=== PATIENT | female | born 1975 | race Caucasian/White ===

== ENCOUNTER 2017-08-15 14:25 | Outpatient (CLI) | payer OTHER ==
--- NOTE | 2017-08-16 11:53 | Ultrasound Report ---
PELVIS ULTRASOUND: 08/15/2017 COMPARISON: Pelvis ultrasound 01/30/2016. INDICATION: Abdominal pain lower abdomen. TECHNIQUE: Transabdominal and endovaginal pelvic ultrasound was performed. FINDINGS: The uterus is surgically absent. No pelvic mass is identified. There is a trace amount of free fluid which may be physiologic. The ovaries have a normal appearance with normal appearing blood flow. Right ovary 3.4 x 2.1 x 1.8 cm. Volume 7 mL Left ovary 2.7 x 1.6 x 0.9 cm. Volume 2 mL IMPRESSION: ESSENTIALLY NEGATIVE PELVIC ULTRASOUND WITH PRIOR HYSTERECTOMY. TD: 08/16/2017 11:52 MAE
== END 2017-08-15 14:26 | disposition home or self-care (01) ==
LOC: DI 14:25
PROVIDERS: ATTEND Nurse Practitioner Gerontology
DX: R10.30 Lower abdominal pain, unspecified (principal)
CPT/HCPCS: 76830; 76856

== ENCOUNTER 2017-09-23 09:47 | Outpatient (CLI) | payer OTHER ==
--- NOTE | 2017-09-23 11:37 | XRAY Report ---
Procedure Date: 09/23/2017 Accession Number: [id number] / [id number] Procedure: XRN - Cervical Spine Complete CPT Code: FULL RESULT: EXAM: Cervical Spine Complete DATE: 09/23/2017 10:05 AM CLINICAL HISTORY: Neck pain COMPARISON: None. TECHNIQUE: 3 views. FINDINGS: Alignment: Slight retrolisthesis C5 with respect to C6. Upper cervical levoscoliosis. Bones: The cervical vertebral bodies and posterior elements are well seen from the skull base through C7-T1. No fractures or bone lesions. Disks: Degenerative disc space narrowing most marked C5-6. Facets: Scattered degenerative change. Soft Tissues: Normal. No prevertebral soft tissue swelling. IMPRESSION: Degenerative change cervical spine most marked C5-6 without superimposed acute findings. RADIA
== END 2017-09-23 09:48 | disposition home or self-care (01) ==
LOC: DI.N 09:47
PROVIDERS: ATTEND Nurse Practitioner
DX: M50.31 Other cervical disc degeneration, high cervical region (principal); M47.892 Other spondylosis, cervical region; M43.12 Spondylolisthesis, cervical region; M41.82 Other forms of scoliosis, cervical region
CPT/HCPCS: 72040

== ENCOUNTER 2017-11-25 16:19 | Outpatient (CLI) | payer OTHER | END 2017-11-25 16:20 | disposition home or self-care (01) | LOC: DI.N 16:19 | PROVIDERS: ATTEND Radiology Diagnostic Radiology | DX: Z12.31 Encounter for screening mammogram for malignant neoplasm of breast (principal) | CPT/HCPCS: 77067 ==

== ENCOUNTER 2018-03-31 11:33 | Emergency (ER) | payer OTHER ==
[2018-03-31 13:14] LABS: BILIRUBIN,URINE NEGATIVE (NEGATIVE); GLUCOSE, URINE (UA) NEGATIVE (NEGATIVE); KETONES,URINE (UA) NEGATIVE (NEGATIVE); LEUKOCYTE ESTERASE, URINE NEGATIVE (NEGATIVE); NITRITE,URINE NEGATIVE (NEGATIVE); OCCULT BLOOD,URINE NEGATIVE (NEGATIVE); PROTEIN,URINE NEGATIVE (NEGATIVE); UROBILINOGEN,URINE 0.2 (NORMAL) E.U./dL (NORMAL)
[2018-03-31 13:32] LABS: CLARITY,URINE CLEAR (CLEAR); HCG UR QUAL NEGATIVE
[2018-03-31 14:24] LABS: BASOPHILS # (AUTO) 0.1 10^3/uL (0.0-0.1); BASOPHILS % (AUTO) 1.3 %; EOSINOPHILS # (AUTO) 0.1 10^3/uL (0.0-0.7); EOSINOPHILS % (AUTO) 1.2 %; HGB - HEMOGLOBIN 15.1 g/dL (12.0-16.0); LYMPHOCYTES # (AUTO) 1.9 10^3/uL (1.5-3.5); LYMPHOCYTES % (AUTO) 24.3 %; MEAN CORPUSCULAR VOLUME 85.3 fL (81.0-99.0); MONOCYTES # (AUTO) 0.6 10^3/uL (0.0-1.0); MONOCYTES % (AUTO) 7.4 %; NEUTROPHILS # (AUTO) 5.3 10^3/uL (1.5-6.6); NEUTROPHILS % (AUTO) 65.8 %; PLT - PLATELET COUNT 216 10^3/uL (130-450); RED CELL DISTRIBUTION WIDTH 12.7 % (12.0-15.0)
[2018-03-31 14:34] LABS: ALBUMIN 4.2 g/dL (3.2-5.5); ALBUMIN/GLOBULIN RATIO 1.6 (1.0-2.2); BILIRUBIN,TOTAL 0.9 mg/dL (0.2-1.0); CALCIUM 8.4 mg/dL (8.5-10.3); CREATININE 0.7 mg/dL (0.4-1.0); TOTAL PROTEIN 6.8 g/dL (6.7-8.2)
[2018-03-31] MEDS ORDERED: LIDOCAINE 1% 2 ML VIAL SUBQ ONE (15:11)
[2018-03-31] MEDS ORDERED: cefTRIAXone 1 GM VIAL IM STA (15:11)
--- NOTE | 2018-03-31 15:14 | ED Physician Documentation ---
History of Present Illness - Stated complaint Stated Complaint: AB/BACK PX - Chief complaint Chief Complaint: Abd Pain - History obtained from History obtained from: Patient - History of Present Illness Timing: How many days ago (3) Pain level max: 7 Pain level now: 5 Improved by: Nothing Worsened by: urination - Additonal information Additional information: Patient is a 42-year-old female who presents to the emergency department complaining of right flank pain. This been ongoing for the past 3 days. Also has urinary burning, frequency and urgency. States similar to past episodes of pyelonephritis. No fever. No vomiting. No vaginal bleeding or discharge. No possibility of Review of Systems Ten Systems: 10 systems reviewed and negative Constitutional: denies: Fever, Chills Ears: denies: Ear pain Nose: denies: Rhinorrhea / runny nose, Congestion Throat: denies: Sore throat Cardiac: denies: Chest pain / pressure Respiratory: denies: Cough GI: denies: Vomiting, Diarrhea, Hematemesis, Bloody / black stool Skin: denies: Rash Musculoskeletal: denies: Neck pain, Back pain Neurologic: denies: Headache PD PAST MEDICAL HISTORY - Past Medical History Past Medical History: Yes Cardiovascular: Hypertension Respiratory: None Neuro: Migraines Endocrine/Autoimmune: None GI: GERD, Other CUSTOMER CARE ASSISTANT: Endometriosis : None HEENT: None Psych: None Musculoskeletal: None Derm: None - Past Surgical History Past Surgical History: Yes /CUSTOMER CARE ASSISTANT: section, Dilation and currettage, Hysterectomy HEENT: Tonsil/Adenoidectomy - Present Medications Home Medications: Ambulatory Orders Medication Instructions Recorded Confirmed Esomeprazole Magnesium [Nexium] 40 mg PO DAILY 02/25/15 02/25/15 Cefdinir 300 mg PO BID #20 capsule 03/31/18 - Allergies Allergies/Adverse Reactions: Allergies Allergy/AdvReac Type Severity Reaction Status Date / Time fluticasone propionate * Allergy Mild Rash Verified 03/31/18 12:08 [From Flonase] Sulfa (Sulfonamide Allergy Rash Verified 03/31/18 12:08 Antibiotics) morphine AdvReac Itching Verified 03/31/18 12:08 terbutaline AdvReac Unknown Verified 03/31/18 12:08 - Social History Does the pt smoke?: No Smoking Status: Never smoker Does the pt drink ETOH?: Yes Does the pt have substance abuse?: No - Immunizations Immunizations are current?: Yes - POLST Patient has POLST: No PD ED PE NORMAL - Vitals Vital signs reviewed: Yes - General General: Alert and oriented X 3, No acute distress - HEENT HEENT: Moist mucous membranes - Neck Neck: Supple, no meningeal sign - Cardiac Cardiac: RRR - Respiratory Respiratory: No respiratory distress, Clear bilaterally - Abdomen Abdomen: Soft, Non tender, Non distended - Back Back: No spinal TTP, Other (mild R CVAT) - Derm Derm: Warm and dry - Neuro Neuro: Alert and oriented X 3 - Psych Psych: Normal mood, Normal affect Results - Vitals Vitals: Vital Signs - 24 hr 03/31/18 03/31/18 03/31/18 12:06 13:51 16:03 Temperature 37.2 C 36.1 C L 36.5 C Heart Rate 77 80 82 Respiratory 16 18 16 Rate Blood Pressure 123/83 H 128/76 115/67 O2 Saturation 100 97 100 Oxygen O2 Source Room air - Labs Labs: Laboratory Tests 03/31/18 03/31/18 03/31/18 12:20 14:13 14:13 WBC 8.0 RBC 5.20 Hgb 15.1 Hct 44.4 MCV 85.3 MCH 29.0 MCHC 34.0 RDW 12.7 Plt Count 216 MPV 8.0 Neut # (Auto) 5.3 Lymph # (Auto) 1.9 [place] # (Auto) 0.6 Eos # (Auto) 0.1 Baso # (Auto) 0.1 Absolute Nucleated RBC 0.00 Nucleated RBC % 0.0 Sodium 134 L Potassium 3.7 Chloride 104 Carbon Dioxide 26 Anion Gap 4.0 L BUN 9 Creatinine 0.7 Estimated GFR (MDRD) 91 Glucose 102 H Calcium 8.4 L Total Bilirubin 0.9 AST 23 ALT 44 Alkaline Phosphatase 79 Total Protein 6.8 Albumin 4.2 Globulin 2.6 Albumin/Globulin Ratio 1.6 Lipase 31 Urine Color YELLOW Urine Clarity CLEAR Urine pH 7.0 Ur Specific Lilly 1.015 Urine Protein NEGATIVE Urine Glucose (UA) NEGATIVE Urine Ketones NEGATIVE Urine Occult Blood NEGATIVE Urine Nitrite NEGATIVE Urine Bilirubin NEGATIVE Urine Urobilinogen 0.2 (NORMAL) Ur Leukocyte Esterase NEGATIVE Ur Microscopic Review NOT INDICATED Urine Culture Comments NOT INDICATED Urine HCG, Qual NEGATIVE PD MEDICAL DECISION MAKING - ED course Complexity details: reviewed results, re-evaluated patient, considered differential, d/w patient ED course: 42-year-old female with what appears to be pyelonephritis clinically. She is well-appearing, nontoxic. Afebrile. UA is negative, however she urinated just prior to giving the sample. Will treat based on symptoms at this point. No evidence of appendicitis. No evidence of bowel obstruction. Patient counseled regarding signs and symptoms for which I believe and urgent re-evaluation would be necessary. Patient with good understanding of and agreement to plan and is comfortable going home at this time This document was made in part using voice recognition software. While efforts are made to proofread this document, sound alike and grammatical errors may occur. Departure - Departure Disposition: 01 Home, Self Care Clinical Impression: Pyelonephritis Condition: Good Instructions: ED Kidney Infec Female Follow-Up: Eliza Godinez DNP [Primary Care Provider] - Within 1 week (if not better) Prescriptions: Cefdinir 300 mg PO BID #20 capsule Comments: Take all antibiotics until gone. Return if you worsen. This should improve with antibiotics. If you are not improving, you need further evaluation. Your prescription was sent to [facility] in [place] Discharge Date/Time: 03/31/18 16:05
[2018-03-31 16:05] VITALS: BP 115/67
== END 2018-03-31 16:05 | disposition home or self-care (01) ==
LOC: ED 11:33
DX: N12 Tubulo-interstitial nephritis, not specified as acute or chronic (principal); I10 Essential (primary) hypertension
CPT/HCPCS: 36415; 80053; 81001; 81003; 81025; 83690; 85025; 87086; 96372; 99283

== ENCOUNTER 2018-04-08 15:58 | Emergency (ER) | payer OTHER ==
[2018-04-08 16:25] LABS: BILIRUBIN,URINE NEGATIVE (NEGATIVE); GLUCOSE, URINE (UA) NEGATIVE (NEGATIVE); KETONES,URINE (UA) NEGATIVE (NEGATIVE); LEUKOCYTE ESTERASE, URINE NEGATIVE (NEGATIVE); NITRITE,URINE NEGATIVE (NEGATIVE); OCCULT BLOOD,URINE NEGATIVE (NEGATIVE); PROTEIN,URINE NEGATIVE (NEGATIVE); UROBILINOGEN,URINE 0.2 (NORMAL) E.U./dL (NORMAL)
[2018-04-08 16:27] LABS: CLARITY,URINE CLEAR (CLEAR)
--- NOTE | 2018-04-08 16:29 | ED Physician Documentation ---
PD HPI ABD PAIN - Stated complaint Stated Complaint: LOWER ABD PX - Chief complaint Chief Complaint: Abd Pain - History obtained from History obtained from: Patient - History of Present Illness Timing - onset: How many weeks ago (04/09) Timing - duration: Weeks (04/09) Timing - details: Gradual onset, Waxing and waning Quality: Cramping, Aching, Pain Location: RLQ, Suprapubic Radiation: Right flank Improved by: No: Eating, Laying still Worsened by: Moving, Palpation, Other (urination). No: Eating, Breathing Associated symptoms: Nausea, Dysuria. No: Fever, Vomiting, Diarrhea, Hematuria, Dizzy, Vaginal bleeding, Vaginal dc Similar symptoms before: Diagnosis (UTIs and has had adhesion pains in the past with abd/flank pain. post hyst/oophorectomy due to endometriosis.) Recently seen: Emergency Dept (03/31 treated for UTI based on symptoms, with normal UA at the time. Cultures also came back negative. Her symptoms improved but did not fully go away and are back again, with lower abd pain, dysuria, and some right flank pain.) Review of Systems Constitutional: denies: Fever, Chills Respiratory: denies: Cough GI: reports: Nausea. denies: Vomiting, Diarrhea : reports: Dysuria, Frequency, Hysterectomy. 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 : None HEENT: None Psych: None Musculoskeletal: None Derm: None - Past Surgical History Past Surgical History: Yes /HEEL ATTACHER: section, Dilation and currettage, Hysterectomy HEENT: Tonsil/Adenoidectomy - Present Medications Home Medications: Ambulatory Orders Medication Instructions Recorded Confirmed Esomeprazole Magnesium [Nexium] 40 mg PO DAILY 02/25/15 02/25/15 Cefdinir 300 mg PO BID #20 capsule 03/31/18 Hydrocodone/Acetaminophen [[place]m 1 each PO Q6H PRN #12 tablet 04/08/18 5-325 Tablet] Metronidazole [Flagyl] 500 mg PO BID #14 tablet 04/08/18 Naproxen 500 mg PO BID #20 tablet 04/08/18 - Allergies Allergies/Adverse Reactions: Allergies Allergy/AdvReac Type Severity Reaction Status Date / Time fluticasone propionate * Allergy Mild Rash Verified 04/08/18 16:07 [From Flonase] Sulfa (Sulfonamide Allergy Rash Verified 04/08/18 16:07 Antibiotics) morphine AdvReac Itching Verified 04/08/18 16:07 terbutaline AdvReac Unknown Verified 04/08/18 16:07 - Social History Does the pt smoke?: No Smoking Status: Never smoker Does the pt drink ETOH?: No Does the pt have substance abuse?: No - Immunizations Immunizations are current?: No - POLST Patient has POLST: No PD ED PE NORMAL - Vitals Vital signs reviewed: Yes - General General: Alert and oriented X 3, No acute distress (appears moderately uncomfortable), Well developed/nourished - HEENT HEENT: Pharynx benign - Neck Neck: Supple, no meningeal sign, No adenopathy - Cardiac Cardiac: RRR, No murmur - Respiratory Respiratory: Clear bilaterally - Abdomen Abdomen: Normal bowel sounds, Soft, Non distended, No organomegaly, Other (te nder lower abd and RLQ area, also some right flank tenderness. No rash nor sores. 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 External genitalia normal. some odor. ) - Rectal Rectal: Deferred - Derm Derm: Normal color, Warm and dry, No rash - Extremities Extremities: No tenderness to palpate, Normal ROM s pain - Neuro Neuro: Alert and oriented X 3, No motor deficit, Normal speech Results - Vitals Vitals: Oxygen O2 Source Room air - Labs Labs: Microbiology 04/08/18 Unknown Wet Prep - Final Genital - Cervix Laboratory Tests 04/08/18 04/08/18 16:15 19:04 Urine Color YELLOW Urine Clarity CLEAR Urine pH 6.0 Ur Specific [place] >=1.030 H Urine Protein NEGATIVE Urine Glucose (UA) NEGATIVE Urine Ketones NEGATIVE Urine Occult Blood NEGATIVE Urine Nitrite NEGATIVE Urine Bilirubin NEGATIVE Urine Urobilinogen 0.2 (NORMAL) Ur Leukocyte Esterase NEGATIVE Ur Microscopic Review NOT INDICATED Urine Culture Comments NOT INDICATED C.trachomatis RNA (TMA) NOT DETECTED Chlamydia/GC Comment SEE NOTE N.gonorrhoeae RNA (TMA) NOT DETECTED - Rads (name of study) abd/pelvic CT Radiology: Prelim report reviewed (normal appendix. no ureteral stones (small stone in kidney, nonobstructing). ), See rad report PD MEDICAL DECISION MAKING - ED course Complexity details: reviewed results (CT scan appears normal - no stones, normal appendix, no mandi cysts/abscesses, etc.), considered differential (symptoms could be c/w UTI/pyelo, appy, kidney stone, BV, colitis.), d/w patient Departure - Departure Disposition: 01 Home, Self Care Clinical Impression: Lower abdominal pain, Right flank pain, Bacterial vaginitis Condition: Stable Record reviewed to determine appropriate education?: Yes Instructions: ED Abdominal Pain Unkn Cause, ED Vaginosis Bacterial Follow-Up: Eliza Godinez DNP [Primary Care Provider] - Prescriptions: Hydrocodone/Acetaminophen [Chisholm 5-325 Tablet] 1 each PO Q6H PRN #12 tablet PRN Reason: Pain Metronidazole [Flagyl] 500 mg PO BID #14 tablet Naproxen 500 mg PO BID #20 tablet Comments: Your CT scan did not show any obvious cause for the pains. Your urine test looks normal. It does look like you have some vaginitis we will treat that for bacterial vaginitis with some antibiotics and some anti-inflammatories. There could be potential other causes for your pain such as adhesions or scar tissue. Recheck if not improved over the next several days. Add Tylenol or hydrocodone if needed for worse pain. Discharge Date/Time: 04/08/18 19:30
[2018-04-08] MEDS ORDERED: IBUPROFEN 600 MG TABLET PO STA (16:54)
[2018-04-08] MEDS ORDERED: ACETAMINOPHEN 325 MG TABLET PO STA (16:54)
--- NOTE | 2018-04-08 18:23 | CT Report ---
Reason: right flank and low abd pain for a week now Procedure Date: 04/08/2018 Accession Number: [id number] / [id number] Procedure: CT - Abdomen/Pelvis W/O CPT Code: FULL RESULT: EXAM: CT ABDOMEN AND PELVIS EXAM DATE: 04/08/2018 05:21 PM. CLINICAL HISTORY: Right flank and low abdominal pain for a week now. COMPARISONS: Abdomen and pelvis CT 01/30/2016. TECHNIQUE: Routine helical CT imaging was performed through the abdomen and pelvis. IV contrast: None. Enteric contrast: No. Reconstructions: Coronal and sagittal. In accordance with CT protocol optimization, one or more of the following dose reduction techniques were utilized for this exam: automated exposure control, adjustment of mA and/or KV based on patient size, or use of iterative reconstructive technique. FINDINGS: Lung Bases: Unremarkable. Liver: Normal in contour. Hypodensity within the lateral segment of the left lobe adjacent to the falciform ligament, probably focal fat. This is similar to the prior exam. Gallbladder/Bile Ducts: Unremarkable. Spleen: Normal. Pancreas: Normal. Adrenal Glands: Normal. Kidneys: Normal in contour with a 1 mm nonobstructing stone at the upper pole of the right kidney. Peritoneal Cavity/Bowel: The stomach is unremarkable. There are no dilated loops of large or small intestine. The appendix appears diminutive and unremarkable. No focal inflammation. Pelvic Organs: The bladder is unremarkable. Status post hysterectomy. No adnexal mass. Vasculature: No aneurysms or other significant abnormality. Bones: No significant abnormality. Other: None. IMPRESSION: 1. Nonobstructive nephrolithiasis. No ureteral stone or hydronephrosis. 2. No dilated bowel or focal inflammation. RADIA
[2018-04-08] MEDS ORDERED: HYDROcod/ACET 5/325 Prepack 4 PO STA (19:03)
[2018-04-08] MEDS ORDERED: metroNIDAZOLE 250 MG TABLET PO STA (19:03)
[2018-04-08 19:22] VITALS: BP 135/74
== END 2018-04-08 19:30 | disposition home or self-care (01) ==
LOC: ED 15:58
DX: N76.0 Acute vaginitis (principal); B96.89 Other specified bacterial agents as the cause of diseases classified elsewhere; R10.31 Right lower quadrant pain; N20.0 Calculus of kidney; I10 Essential (primary) hypertension
CPT/HCPCS: 74176; 81003; 87210; 87491; 87591; 99283; A9270; 81001; 87086

== ENCOUNTER 2019-06-02 11:43 | Outpatient (CLI) | payer OTHER ==
[2019-06-02 18:47] LABS: BASOPHILS # (AUTO) 0.1 10^3/uL (0.0-0.1); BASOPHILS % (AUTO) 0.8 %; EOSINOPHILS # (AUTO) 0.1 10^3/uL (0.0-0.7); EOSINOPHILS % (AUTO) 0.9 %; HGB - HEMOGLOBIN 15.2 g/dL (12.0-16.0); LYMPHOCYTES # (AUTO) 1.5 10^3/uL (1.5-3.5); LYMPHOCYTES % (AUTO) 22.9 %; MEAN CORPUSCULAR HEMOGLOBIN 28.3 pg (27.0-31.0); MEAN CORPUSCULAR HGB CONC 32.1 g/dL (32.0-36.0); MEAN CORPUSCULAR VOLUME 88.1 fL (81.0-99.0); MEAN PLATELET VOLUME 10.9 fL (7.9-10.8); MONOCYTES # (AUTO) 0.5 10^3/uL (0.0-1.0); MONOCYTES % (AUTO) 7.8 %; NEUTROPHILS # (AUTO) 4.4 10^3/uL (1.5-6.6); NEUTROPHILS % (AUTO) 67.3 %; PLT - PLATELET COUNT 279 10^3/uL (130-450); RED BLOOD COUNT 5.37 10^6/uL (4.20-5.40); RED CELL DISTRIBUTION WIDTH 12.2 % (12.0-15.0); WHITE BLOOD COUNT 6.6 x10^3/uL (4.8-10.8)
[2019-06-02 18:57] LABS: ALBUMIN 4.3 g/dL (3.2-5.5); ALBUMIN/GLOBULIN RATIO 1.8 (1.0-2.2); BILIRUBIN,TOTAL 0.5 mg/dL (0.2-1.0); CALCIUM 8.6 mg/dL (8.5-10.3); CREATININE 0.8 mg/dL (0.4-1.0); TOTAL PROTEIN 6.7 g/dL (6.7-8.2)
== END 2019-06-02 23:59 | disposition home or self-care (01) ==
LOC: LAB.N 11:43
PROVIDERS: ATTEND Nurse Practitioner Gerontology
DX: R11.2 Nausea with vomiting, unspecified (principal); R10.9 Unspecified abdominal pain
CPT/HCPCS: 36415; 80053; 82150; 83690; 85025

== ENCOUNTER 2019-06-02 21:58 | Outpatient (CLI) | payer OTHER ==
--- NOTE | 2019-06-03 00:15 | Ultrasound Report ---
Reason: NAUSEA,VOMITING, ABD PAIN Procedure Date: 06/02/2019 Accession Number: [id number] / [id number] Procedure: US - Abdomen Complete CPT Code: Final Report FULL RESULT: EXAM: ABDOMEN ULTRASOUND EXAM DATE: 06/02/2019 11:16 PM. CLINICAL HISTORY: NAUSEA, VOMITING, ABD PAIN. COMPARISON: None. TECHNIQUE: Real-time scanning was performed with static images obtained. FINDINGS: Liver: No focal lesions. 14.8 cm. Main portal vein flow: Hepatopetal. Gallbladder: Normal. No stones, wall thickening, or sonographic Andrea's sign. Biliary System: Common bile duct measures 2.5 mm. No intrahepatic or extrahepatic ductal dilatation. Distal common bile duct not well visualized due to overlying bowel gas. Pancreas: Poorly visualized due to overlying bowel gas. Kidneys: Right: 10.4 cm longitudinally. Normal. No contour-deforming mass, stones, or hydronephrosis. Left: 10.9 cm longitudinally. Normal. No contour-deforming mass, stones, or hydronephrosis. Spleen: 10.7 x 10.3 x 4.2 cm. Normal in size and echotexture. Aorta and Inferior Vena Cava: Unremarkable. Other: None. IMPRESSION: Normal abdomen ultrasound. RADIA The call report notification system was initiated by Dr. Orlando Law at 12:16 AM on 06/03/2019.
== END 2019-06-02 21:59 | disposition home or self-care (01) ==
LOC: DI 21:58
PROVIDERS: ATTEND Nurse Practitioner Gerontology
DX: R11.2 Nausea with vomiting, unspecified (principal); R10.9 Unspecified abdominal pain
CPT/HCPCS: 36415; 76700; 80053; 82150; 83690; 85025

== ENCOUNTER 2019-06-14 10:10 | Outpatient (CLI) | payer OTHER ==
[2019-06-14 14:55] LABS: H. PYLORIS ANTIGEN STL NEGATIVE (Negative)
== END 2019-06-14 23:59 | disposition home or self-care (01) ==
LOC: LAB.R 10:10
PROVIDERS: ATTEND Family Medicine
DX: K52.9 Noninfective gastroenteritis and colitis, unspecified (principal)
CPT/HCPCS: 81599; 82274; 83630; 87045; 87046; 87177; 87209; 87329; 87338; 87493

== ENCOUNTER 2019-12-24 20:49 | Outpatient (CLI) | payer OTHER | END 2019-12-24 20:50 | disposition EMS.NT | LOC: EMS 20:49 | PROVIDERS: ATTEND Surgery | DX: R55 Syncope and collapse (principal) ==

== ENCOUNTER 2021-07-07 08:00 | Outpatient (CLI) | payer OTHER | END 2021-07-07 23:59 | disposition home or self-care (01) | LOC: LAB.N 08:00 | PROVIDERS: ATTEND Nurse Practitioner | DX: J06.9 Acute upper respiratory infection, unspecified (principal); Z20.822 Contact with and (suspected) exposure to COVID-19 ==

== ENCOUNTER 2022-03-19 08:00 | Outpatient (CLI) | payer OTHER ==
[2022-03-19 23:44] LABS: CHLAMYDIA TRACHOMATIS DNA NEGATIVE (NEGATIVE); NEISSERIA GONORRHOEAE DNA NEGATIVE (NEGATIVE)
[2022-03-20 00:29] LABS: BACTERIAL VAGINOSIS DNA NEGATIVE (NEGATIVE); CANDIDA GLABRATA DNA NEGATIVE (NEGATIVE); CANDIDA GROUP DNA NEGATIVE (NEGATIVE); CANDIDA KRUSEI DNA NEGATIVE (NEGATIVE); TRICHOMONAS VAGINALIS DNA NEGATIVE (NEGATIVE)
== END 2022-03-19 23:59 | disposition home or self-care (01) ==
LOC: LAB.N 08:00
PROVIDERS: ATTEND Nurse Practitioner
DX: N89.8 Other specified noninflammatory disorders of vagina (principal)
CPT/HCPCS: 81514; 87086; 87181; 87491; 87591; 87661

== ENCOUNTER 2022-04-19 08:41 | Outpatient (CLI) | payer OTHER ==
[2022-04-19 12:08] LABS: BASOPHILS # (AUTO) 0.1 10^3/uL (0.0-0.1); BASOPHILS % (AUTO) 1.4 %; EOSINOPHILS # (AUTO) 0.1 10^3/uL (0.0-0.7); EOSINOPHILS % (AUTO) 1.3 %; HCT - HEMATOCRIT 40.8 % (37.0-47.0); HGB - HEMOGLOBIN 12.2 g/dL (12.0-16.0); LYMPHOCYTES # (AUTO) 1.5 10^3/uL (1.5-3.5); LYMPHOCYTES % (AUTO) 24.6 %; MEAN CORPUSCULAR HEMOGLOBIN 24.7 pg (27.0-31.0); MEAN CORPUSCULAR HGB CONC 29.9 g/dL (32.0-36.0); MEAN CORPUSCULAR VOLUME 82.8 fL (81.0-99.0); MONOCYTES # (AUTO) 0.6 10^3/uL (0.0-1.0); MONOCYTES % (AUTO) 9.4 %; NEUTROPHILS % (AUTO) 63.1 %; PLT - PLATELET COUNT 270 10^3/uL (130-450); RED BLOOD COUNT 4.93 10^6/uL (4.20-5.40); RED CELL DISTRIBUTION WIDTH 12.9 % (12.0-15.0); WHITE BLOOD COUNT 6.3 x10^3/uL (4.8-10.8)
[2022-04-19 12:31] LABS: THYROID STIMULATING HORMONE 1.35 uIU/mL (0.34-5.60)
[2022-04-19 12:33] LABS: FREE T4 (FREE THYROXINE) 0.8 ng/dL (0.58-1.64)
[2022-04-19 12:38] LABS: ALBUMIN 3.8 g/dL (3.2-5.5); ALBUMIN/GLOBULIN RATIO 1.4 (1.0-2.2); ALKALINE PHOSPHATASE 75 IU/L (42-121); ALT ALANINE AMINOTRANSFERASE 23 IU/L (10-60); AST ASPARTATE AMINOTRANSFERASE 16 IU/L (10-42); BILIRUBIN,TOTAL 0.5 mg/dL (0.2-1.0); BUN - BLOOD UREA NITROGEN 18 mg/dL (6-20); CALCIUM 8.9 mg/dL (8.5-10.3); CARBON DIOXIDE - CO2 25 mmol/L (21-32); CHLORIDE 107 mmol/L (101-111); CHOL/HDL RATIO 2.3 (<4.4); CHOLESTEROL 171 mg/dL; CREATININE 1.1 mg/dL (0.4-1.0); GFR - MDRD 53 (>89); GLUCOSE 105 mg/dL (70-100); HDL CHOLESTEROL 76 mg/dL; POTASSIUM 4.2 mmol/L (3.5-5.0); SODIUM 139 mmol/L (135-145); TOTAL PROTEIN 6.6 g/dL (6.7-8.2); TRIGLYCERIDES 36 mg/dL
[2022-04-19 12:40] LABS: CRP - C-REACTIVE PROTEIN < 1.0 mg/dL (0-1.0)
[2022-04-21 16:08] LABS: T-TRANSGLUTAMINASE (TTG) IGA <2 U/mL (0-3); T-TRANSGLUTAMINASE (TTG) IGG <2 U/mL (0-5)
== END 2022-04-19 08:42 | disposition home or self-care (01) ==
LOC: LAB.N 08:41
PROVIDERS: ATTEND Nurse Practitioner
DX: R53.83 Other fatigue (principal); Z13.220 Encounter for screening for lipoid disorders; K52.9 Noninfective gastroenteritis and colitis, unspecified; Z12.11 Encounter for screening for malignant neoplasm of colon
CPT/HCPCS: 36415; 80050; 80061; 82607; 83516; 83721; 84439; 85651; 86140; 86364

== ENCOUNTER 2022-04-24 15:26 | Outpatient (CLI) | payer OTHER ==
--- NOTE | 2022-04-25 11:55 | Mammography Report ---
BILATERAL DIGITAL SCREENING MAMMOGRAM 3D/2D: 04/24/2022 CLINICAL: Routine screening. Comparison is made to exams dated: 11/25/2017 mammogram, 11/01/2016 mammogram, and 10/25/2015 mammogram - [facility]. Both breasts are heterogeneously dense, which may obscure small masses (category c / 51-75% glandular tissue). No significant masses, calcifications, or other findings are seen in either breast. There has been no significant interval change. IMPRESSION: NEGATIVE There is no mammographic evidence of malignancy. A 1 year screening mammogram is recommended. Based on the Tyrer Cuzick model (a risk assessment model) the patients lifetime risk is 10.3% and he r 10 year risk is 2.1%. According to the ACR, ACS, and NCCN guidelines, an annual breast MRI exam fanny ng with mammogram is recommended if the patients lifetime risk is 20% or greater. This exam was interpreted at Station ID: [id number]. NOTE: For mammograms, a report in lay terms will be sent to the patient. Approximately 15% of breast malignancies will not be visualized mammographically. In the management of a palpable breast mass, a negative mammogram must not discourage biopsy of a clinically suspicious lesion. Electronically Signed By: Saeed lynn/rosi:04/25/2022 08:27:12 ACR BI-RADS Category 1: Negative 3341F PARENCHYMAL PATTERN: (D) - The breast(s) demonstrate(s) heterogeneously dense fibroglandular tahir dorsey. BI-RADS CATEGORY: (1) - 1 RECOMMENDATION: (ANNUAL) - Recommend routine annual screening mammography. [id number] 1 year screening LATERALITY: (B)
== END 2022-04-24 15:27 | disposition home or self-care (01) ==
LOC: DI.N 15:26
PROVIDERS: ATTEND Nurse Practitioner
DX: Z12.31 Encounter for screening mammogram for malignant neoplasm of breast (principal)

== ENCOUNTER 2022-12-21 06:32 | Outpatient (CLI) | payer OTHER | END 2022-12-21 06:33 | disposition EMS.NT | LOC: EMS 06:32 | DX: R55 Syncope and collapse (principal) ==